=== PATIENT | female | born 1965 | race Caucasian/White ===

== ENCOUNTER → 2024-08-08 10:57 | Outpatient (CLI) | payer OTHER, SELFPAY ==
--- NOTE | 2024-08-08 11:12 | DI.RAD.S_ITS ---
PROCEDURE: XR LUMBAR SPINE MIN 4V INDICATIONS: xray TECHNIQUE: 3 lateral views of the lumbar spine acquired, including flexion and extension views.>> COMPARISON: None. FINDINGS: Lumbar spine curvature and alignment: Grade 1 L4-5 spondylolisthesis due to degenerate facet disease noted. The remaining lumbar spine is anatomically aligned Bones: There are no osseous abnormalities. Disc spaces: Moderate L4-5 and mild L5-S1 degenerative disc disease noted. There is moderate L4-5 and L5-S1 degenerative facet disease Soft tissues: Right sciatic nerve stimulator is grossly normal IMPRESSION: Grade 1 L4-5 spondylolisthesis and degeneration Dictated by: Chris Kraus M.D. on 08/09/2024 at 12:30 Approved by: Chris Kraus M.D. on 08/09/2024 at 12:31
== END ==
LOC: RAD 11:08
PROVIDERS: Referring Provider Nurse Practitioner Family; Visit Provider Nurse Practitioner Family
DX: M51.369 Other intervertebral disc degeneration, lumbar region without mention of lumbar back pain or lower extremity pain (principal); M47.816 Spondylosis without myelopathy or radiculopathy, lumbar region; M43.16 Spondylolisthesis, lumbar region; M54.50 Low back pain, unspecified; G89.29 Other chronic pain; Z96.82 Presence of neurostimulator
CPT/HCPCS: 72100

== ENCOUNTER → 2025-01-25 12:29 | Outpatient (CLI) | payer OTHER, SELFPAY ==
--- NOTE | 2025-01-25 12:30 | DI.CT.S_ITS ---
PROCEDURE: CT ANGIO CHEST INDICATIONS: status post aortic repair; chest pain; TECHNIQUE: After the administration of intravenous contrast, 2.5 mm thick sections acquired from the lung apices to the posterior lung bases. Maximum intensity projection (MIP) oblique sagittal reformats were then acquired parallel to the aortic arch. For radiation dose reduction, the following was used: automated exposure control. COMPARISON: None. FINDINGS: Image quality: Diagnostic Lungs and pleura: No airspace consolidation or pleural effusion. Tiny granuloma at the right costophrenic angle. Mediastinum, heart, and esophagus: Ascending aortic repair sequelae. The mid ascending thoracic aorta measures 3.8 cm. No evidence of dissection. Small irregularities at sites of the prior surgical anchors. No evidence of intramural hematoma. Small density along the proximal aortic wall, likely postsurgical. No priors however are available to assess stability. Unremarkable CT appearance of the esophagus. Small hiatal hernia with adjacent postsurgical changes. No enlarged lymph nodes by size criteria Chest wall and thyroid: Unremarkable Upper abdomen: No gross abnormality on these partially visualized images of the upper abdomen. Bones: No aggressive appearing osseous abnormality. Sternotomy wires are present. IMPRESSION: Postsurgical changes of the ascending aorta, without aneurysm or dissection. Ascending aortic wall thin density and small irregularities, likely postsurgical. No priors are available to assess stability. Other findings above. Dictated by: Fabricio Mehta M.D. on 01/27/2025 at 9:30 Approved by: Fabricio Mehta M.D. on 01/27/2025 at 9:35
--- NOTE | 2025-01-25 12:31 | DI.NM.S_ITS ---
PROCEDURE: NM EXERCISE TREADMILL NON NUC COMPARISON: None. INDICATIONS: status post aortic repair; chest pain; FINDINGS: The patient exercised for 5 minutes and 14 seconds reaching 92% of maximum predicted heart rate. Borderline hypertensive response to exercise (resting BP 122/80mg, max BP 202/102mmHg). Mildly to moderately reduced exercise (7.0METs, MALENA +26%). Chest tightness during exercise that slowly improved during recovery and ultimately resolved by the end of recovery. Frequent PVCs during the recovery. No diagnostic ST changes during exercise or recovery. IMPRESSION: Low risk, probably normal treadmill ECG only stress test with mildly to moderately reduced exercise capacity (7METs, MALENA +26%). 1) Non-diagnostic chest tightness during exercise that slowly improved during recovery and ultimately resolved by the end of recovery. Correlate clinically. 2) Frequent PVCs during the recovery. 3) No diagnostic ST changes during exercise or recovery. 4) Borderline hypertensive response to exercise (resting BP 122/80mg, max BP 202/102mmHg). 5) Mildly to moderately reduced exercise (7.0METs, MALENA +26%). Dictated by: Bernardino Gillespie MD on 01/26/2025 at 10:53 Approved by: Bernardino Gillespie MD on 01/26/2025 at 10:57
--- NOTE | 2025-01-25 12:31 | DI.ECHO.S_ITS ---
[facility]+ [facility] : : [address] : : [place] : : [id number] : : Phone: [phone] Echocardiogram Report + + :Name: LENA DIETZ Study Date: 01/25/2025 Height: 66 in : :[facility] [employer] [facility] ReadingLocation: Weight: 235 lb : : Gender: Female BSA: 2.1 m2 : :: 1965 Age: 59 yrs BP: 146/82 mmHg: :Reason For Study: Aortic repair : :Ordering Physician: EMANI AN Performed By: Haresh Cortez : :Referring: EMANI AN : + + Interpretation Summary - Left ventricular contractility is normal. Estimate ejection fraction regarding 55% with no segmental wall motion abnormalities. Mild concentric LVH. Normal diastolic function. - The right ventricular contractility is normal. - All cardiac chambers are of normal size. - No significant valvular abnormalities. - No obvious intracardiac shunts. - No obvious intracardiac masses nor thrombi. - No hemodynamically significant pericardial effusion. - Low right-sided filling pressures. Conclusion: Normal biventricular function with no significant valvular abnormalities. Procedure: A two-dimensional transthoracic echocardiogram with color flow and Doppler was performed. The study quality was technically adequate. There is no prior echocardiogram noted for this patient. The patient was in normal sinus rhythm during the exam. Left Ventricle: The left ventricle is normal in size. Left ventricular wall thickness is mildly increased. Left ventricular systolic function is normal. The ejection fraction is estimated to be 55-60%. There are no focal wall motion abnormalities. Normal diastolic function. Right Ventricle: The right ventricle is normal in size and function. Atria: The left atrial size is normal. Right atrial size is normal. There is no Doppler evidence for an interatrial shunt. Mitral Valve: The mitral valve leaflets appear to open well. There is no mitral valve stenosis. There is trace mitral regurgitation. Aortic Valve: The aortic valve is trileaflet. The aortic valve opens well. There is no aortic valve stenosis. No aortic regurgitation is present. Tricuspid Valve: The tricuspid valve is not well visualized, but is grossly normal. There is trace tricuspid regurgitation. The right ventricular systolic pressure is estimated to be at least 23 mmHg based on an estimated right atrial pressure of 3 mm Hg. Pulmonic Valve: The pulmonic valve is not well seen, but is grossly normal. There is trace pulmonic regurgitation. Great Vessels: The aortic root is normal size. The ascending aorta is normal in size. The aortic arch could not be visualized. The pulmonary is not well visualized. The IVC is of normal diameter and collapses greater than 50% with a sniff. This suggests a low right atrial pressure of 3 mm Hg. Pericardium/ Pleura There is no pericardial effusion. MMode/2D Measurements & Calculations LVIDd: 4.7 cm LVOT diam: 2.0 cm LVIDs: 3.4 cm Ao root diam: 3.1 cm FS: 28.6 % asc Aorta Diam: 3.2 cm IVSd: 1.1 cm LVPWd: 1.1 cm LV apple. diameter/BSA (cm/m^2): 2.2 LV sys. diameter/BSA (cm/m^2): 1.6 LA A2 area: 18.4 cm2 RA long axis: 4.8 cm LA A4 area: 16.4 cm2 RA area: 10.9 cm2 LA length (vol): 5.4 cm RA vol: 20.9 ml LA vol: 47.3 ml RA : 9.7 ml/m2 LA vol index: 22.1 ml/m2 IVC diam: 1.3 cm RVD1 (basal): 2.6 cm RVD2 (mid): 2.1 cm TAPSE: 2.0 cm Doppler Measurements & Calculations Ao V2 max: 128.1 cm/sec LVOT Max Thomas: 112.8 cm/sec Ao V2 mean: 87.4 cm/sec LV V1 max P.1 mmHg Ao max P.6 mmHg LV V1 VTI: 21.3 cm Ao mean P.5 mmHg SAMEERA(I,D): 2.7 cm2 Ao V2 VTI: 24.7 cm SAMEERA(V,D): 2.7 cm2 sev ratio: 0.86 SAMEERA indexed to BSA (cm^2/m^2): 1.2 MV E max thomas: 70.7 cm/sec TR max thomas: 222.2 cm/sec MV A max thomas: 63.8 cm/sec TR max P.7 mmHg MV E/A: 1.1 PA V2 max: 107.8 cm/sec Med Peak E' Thomas: 5.4 cm/sec PA V2 mean: 74.3 cm/sec E/E' med: 13.0 PA mean P.5 mmHg Lat Peak E' Thomas: 8.5 cm/sec PA pr(Accel): 31.5 mmHg E/E' lat: 8.3 E/e' average: 10.6 MV dec time: 0.17 sec SVLVOT): 65.6 ml Reading Physician:RUSSELL
== END ==
PROVIDERS: Referring Provider Internal Medicine; Visit Provider Internal Medicine
DX: R07.9 Chest pain, unspecified (principal); I49.3 Ventricular premature depolarization; K44.9 Diaphragmatic hernia without obstruction or gangrene; Z98.890 Other specified postprocedural states; Z86.79 Personal history of other diseases of the circulatory system
CPT/HCPCS: 71275; 93017; 93306; Q9967

== ENCOUNTER 2025-02-19 14:52 | Observation (INO) | payer OTHER, SELFPAY ==
[2025-02-19] VITALS (14 sets, daily range): BP systolic 121–193; BP diastolic 57–93; PULSE 50–71; RESP 12–24; TEMP 36.1–36.6; O2SAT 93–99; BMI 38.9
--- NOTE | 2025-02-19 15:00 | EKG_ITS ---
[facility] [address] [address] Test Date: 2025-02-19 Pat Name: Erika Moran Department: [facility] Room: Gender: Female Retail Sales Advisor: MARIANA VARGHESE : 1965 Requested By: Order Number: [id number] Reading MD: Chris Hood MD Measurements Intervals [place] Rate: 72 P: -1 FL: 156 QRS: -31 QRSD: 84 T: 44 QT: 410 QTc: 448 Interpretive Statements Normal sinus rhythm Left axis deviation Cannot rule out Anterior infarct , age undetermined Electronically Signed On 02-20-2025 6:45:00 PST by Chris Hood MD
--- NOTE | 2025-02-19 15:01 | DI.RAD.S_ITS ---
PROCEDURE: XR CHEST 1V INDICATIONS: chest pain TECHNIQUE: One view of the chest was acquired. COMPARISON: None. FINDINGS: Surgical changes and devices: Median sternotomy wires. Lungs and pleura: Lungs are clear. No pleural effusions or pneumothorax. Mediastinum: Mediastinal contours appear normal. Heart size is normal. Bones and chest wall: No suspicious bony lesions. Overlying soft tissues appear unremarkable. IMPRESSION: No acute cardiopulmonary abnormality is seen. Dictated by: Sree Owens M.D. on 02/19/2025 at 15:41 Approved by: Sree Owens M.D. on 02/19/2025 at 15:42
[2025-02-19 15:23] LABS: Add Manual Diff / Slide Review NO; Hematocrit 41.1 % (36-46); Hemoglobin 13.8 g/dL (12.0-16.0); Lymphocytes Absolute Auto 2000 /uL (1100-4500); Mean Corpuscular HGB Conc 33.6 % (30-36); Mean Corpuscular Hemoglobin 28.3 PG (26-34); Mean Corpuscular Volume 84.3 fL (80-100); Platelet Count 245 X10^3/uL (150-400)
[2025-02-19 15:34] LABS: Alanine Aminotransferase 41 IU/L (<35); Albumin 4.0 g/dL (3.5-5.0); Albumin Globulin Ratio 1.3 (1.0-2.8); Alkaline Phosphatase 91 U/L (38-126); Blood Urea Nitrogen 17 mg/dL (7-17); Calcium 8.9 mg/dL (8.4-10.2); Carbon Dioxide 23 mmol/L (22-32); Chloride 112 mmol/L (98-107); Estimated Glomerular Filt Rate > 60 mL/min (>60); Globulin 3.1 g/dL (1.7-4.1); Glucose 123 mg/dL (70-99); HEMOLYSIS < 15 (0-50); Lipase 515 U/L (23-300); Magnesium 2.0 mg/dL (1.6-2.3); Potassium 3.4 mmol/L (3.4-5.1); Sodium 142 mmol/L (137-145); Total Protein 7.1 g/dL (6.3-8.2)
[2025-02-19 15:46] LABS: NT-proBNP (BNP-Adult 18+) 995 pg/mL (<125); Troponin I < 0.012 ng/mL (0.01-0.034)
--- NOTE | 2025-02-19 15:57 | ED.CHESTPAIN ---
HPI - Chest Pain <Griffin Ascencio PA-C - Last Filed: 02/19/25 17:49> General Chief Complaint: Chest Pain Stated Complaint: chest pain, today Time Seen by Provider: 02/19/25 15:01 Source: patient Mode of arrival: Ambulatory History of Present Illness HPI narrative: 59-year-old female with past medical history aortic aneurysm, status post surgery for the aortic aneurysm presents to the ED with 1 day of left-sided chest pain. Patient states that her pain started upon awakening. Patient was driving a car, not in any apparent stress when the pain started. Patient endorses mild shortness of breath with exertion. No fever, chills, nausea, vomiting, abdominal pain, dysuria, lightheadedness, dizziness, syncope. Patient has recently been evaluated for chest pain by her traveling repair accountant Dr. nA. Patient underwent a stress test in January. Patient is scheduled to see her traveling repair accountant again in March. Related Data Home Medications ?Medication ?Instructions ?Recorded ?Confirmed amitriptyline 25 mg tablet 25 mg PO ONCE PM 02/19/25 02/19/25 aripiprazole 30 mg tablet 30 mg PO DAILY 02/19/25 02/19/25 clonidine HCl 0.1 mg tablet 0.1 mg PO ONCE PM 02/19/25 02/19/25 lisinopril 10 mg tablet 10 mg PO DAILY 02/19/25 02/19/25 potassium chloride 10 mEq 10 meq PO BID 02/19/25 02/19/25 tablet,extended release progesterone micronized 200 mg 200 mg PO ONCE PM 02/19/25 02/19/25 capsule therapeutic multivitamin 1 tab PO DAILY 02/19/25 02/19/25 triamcinolone acetonide 0.1 % 1 applic topical QD-BID PRN face 02/19/25 02/19/25 topical cream rash Previous Rx's ?Medication ?Instructions ?Recorded pantoprazole 40 mg tablet,delayed 40 mg PO DAILY #30 tabs 02/22/25 release (Protonix) Allergies Allergy/AdvReac Type Severity Reaction Status Date / Time prochlorperazine (From Allergy Respiratory Verified 02/19/25 14:57 Compazine) arrest povidone-iodine (From AdvReac Hives Verified 02/19/25 14:57 Betadine) sertraline (From Zoloft) AdvReac hallucinati Verified 02/19/25 14:57 on Review of Systems <Griffin Ascencio PA-C - Last Filed: 02/19/25 17:49> Constitutional Constitutional: Denies chills, Denies fatigue, Denies fever(s), Denies frequent falls, Denies lethargy and Denies weakness Eyes Eyes: Denies change in vision, Denies eye discharge, Denies irritation and Denies loss of vision ENT Ears, Nose, Mouth, and Throat: Denies change in voice, Denies dizziness, Denies neck pain, Denies sore throat and Denies throat swelling Cardiovascular Cardiovascular: Reports chest pain, Denies irregular heart rhythm, Denies lightheadedness, Denies palpitations, Reports dyspnea, Reports dyspnea on exertion and Denies orthopnea Respiratory Respiratory: Denies cough, Reports dyspnea, Reports dyspnea on exertion and Denies wheezing Gastrointestinal Gastrointestinal: Denies abdominal pain, Denies change in bowel habits, Denies diarrhea, Denies nausea and Denies vomiting Musculoskeletal Musculoskeletal: Denies neck pain and Denies numbness Integumentary/Breasts Skin/Breast: Denies pruritus, Denies erythema, Denies rash and Denies wounds Neurologic Neurologic: Denies behavioral changes, Denies confusion, Denies dizziness, Denies frequent falls, Denies loss of vision, Denies numbness and Denies weakness Psychiatric Psychiatric: Denies anxiety, Denies behavioral changes, Denies confusion, Denies depression, Denies homicidal ideation and Denies suicidal ideation Endocrine Endocrine: Denies fatigue, Denies flushing and Denies palpitations Hematologic/Lymphatic Hematologic/Lymphatic: Denies easy bruising Allergic/Immunologic Allergic/Immunologic: Denies urticaria, Denies throat swelling and Denies wheezing Patient History <Griffin Ascencio PA-C - Last Filed: 02/19/25 17:49> Social History household members: none Smoking Status: Never smoker alcohol intake: former Smoking Status: Never smoker Exam <Griffin Ascencio PA-C - Last Filed: 02/19/25 17:49> Narrative Exam Narrative: Const General:?cooperative, healthy appearing and comfortable [facility] Head:?normal to inspection Ears:?hearing grossly normal bilaterally Nose:?external nose normal Face and sinus:?normal facial exam and sinuses nontender Mouth:?oral mucosae normal Throat:?posterior oropharynx normal Eyes General:?appearance normal, both eyes and all related structures Neck Neck:?normal visual inspection and no lymphadenopathy noted Resp Effort & Inspection:?normal respiratory effort Auscultation:?clear to auscultation bilaterally Cardio Rate:?regular rate Rhythm:?regular rhythm Neuro General:?patient alert, patient awake and patient oriented x3 Initial Vital Signs Initial Vital Signs: Vital Signs Temperature 97.0 F L 02/19/25 14:57 Pulse Rate 71 02/19/25 14:57 Respiratory Rate 18 02/19/25 14:57 Blood Pressure 193/91 H 02/19/25 14:57 Pulse Oximetry 99 02/19/25 14:57 Oxygen Delivery Method Room Air 02/19/25 14:57 <Kiya Mcfarland DO - Last Filed: 02/23/25 23:24> Initial Vital Signs Initial Vital Signs: Vital Signs Temperature 97.0 F L 02/19/25 14:57 Pulse Rate 71 02/19/25 14:57 Respiratory Rate 18 02/19/25 14:57 Blood Pressure 193/91 H 02/19/25 14:57 Pulse Oximetry 99 02/19/25 14:57 Oxygen Delivery Method Room Air 02/19/25 14:57 Course <Griffin Ascencio PA-C - Last Filed: 02/19/25 17:49> Orders Ordered: Discontinued Medications Acetaminophen (Acetaminophen 325 Mg Tablet) 650 mg PO Q6H PRN PRN Reason: Fever/Mild Pain (1-3) Last Admin: 02/20/25 00:55 Dose: 650 mg Documented By: TD Amitriptyline HCl (Amitriptyline 25 Mg Tablet) 25 mg PO BEDTIME [facility] Last Admin: 02/21/25 21:18 Dose: 25 mg Documented By: Admin: 02/20/25 21:02 Dose: 25 mg Documented By: Admin: 02/20/25 00:19 Dose: 25 mg Documented By: TD Aripiprazole (Aripiprazole 10 Mg Tablet) 30 mg PO DAILY [facility] Last Admin: 02/22/25 09:32 Dose: 30 mg Documented By: Admin: 02/21/25 09:11 Dose: 30 mg Documented By: Admin: 02/20/25 10:07 Dose: 30 mg Documented By: TASHA Aspirin (Aspirin 81 Mg Chew Tab) 324 mg PO NOW ONE Stop: 12/15/25 15:02 Last Admin: 02/19/25 16:12 Dose: 324 mg Documented By: RL Calcium Carbonate (Calcium Carbonate 500 Mg Tab) 1,000 mg PO Q4HR PRN PRN Reason: Dyspepsia Clonidine HCl (Clonidine 0.1 Mg Tablet) 0.1 mg PO BEDTIME [facility] Last Admin: 02/21/25 21:18 Dose: 0.1 mg Documented By: Admin: 02/20/25 21:02 Dose: 0.1 mg Documented By: Admin: 02/20/25 00:18 Dose: 0.1 mg Documented By: TD Al Hydrox/Mg Hydrox/Simethicone 30 ml/ Lidocaine HCl 15 ml 0 ml PO NOW ONE Stop: 02/20/25 08:59 Last Admin: 02/20/25 10:15 Dose: 45 ml Documented By: TASHA Cyanocobalamin (Cyanocobalamin 1,000 Mcg/Ml Vial) 1,000 mcg IM NOW ONE Stop: 02/22/25 10:39 Last Admin: 02/22/25 11:34 Dose: 1,000 mcg Documented By: NR Fentanyl (Fentanyl 100 Mcg/2 Ml Inj) 25 mcg IV Q2HR PRN PRN Reason: Pain, Severe (7-10) Last Admin: 02/20/25 21:07 Dose: 25 mcg Documented By: AT Furosemide (Furosemide 40 Mg/4 Ml Vial) 40 mg IV NOW ONE Stop: 02/19/25 15:57 Last Admin: 02/19/25 16:12 Dose: 40 mg Documented By: RL Heparin Sodium (Porcine) (Heparin 5,000 Unit/Ml Vial) 5,000 unit IV NOW ONE Stop: 02/20/25 16:31 Last Admin: 02/20/25 16:52 Dose: 5,000 unit Documented By: TASHA Heparin Sodium (Porcine) (Heparin 5,000 Unit/Ml Vial) 2,500 unit IV NOW ONE Stop: 02/21/25 06:46 Last Admin: 02/21/25 06:49 Dose: 2,500 unit Documented By: AT Heparin Sodium (Porcine) (Heparin 5,000 Unit/Ml Vial) 2,500 unit 25 unit/kg (2500 unit) IV NOW ONE Stop: 02/21/25 14:05 Last Admin: 02/21/25 14:26 Dose: 2,500 unit Documented By: NR Heparin Sodium (Porcine) (Heparin 5,000 Unit/Ml Vial) 2,500 unit 25 unit/kg (2500 unit) IV NOW ONE Stop: 02/22/25 12:41 Last Admin: 02/22/25 12:55 Dose: 2,500 unit Documented By: CATHLEEN Heparin Sodium/Dextrose (Heparin Drip) 25,000 unit in 500 mls @ 26.236 mls/hr IV CONT [facility]; Protocol Last Admin: 02/20/25 16:44 Dose: Not Given Documented By: TASHA Heparin Sodium/Dextrose (Heparin Drip) 25,000 unit in 500 mls @ 19.896 mls/hr IV CONT [facility]; Protocol Last Titration: 02/22/25 12:56 Dose: 11.1 units/kg/hr, 24.268 mls/hr Documented By: CATHLEEN Co-signed By: JERRY Admin: 02/22/25 03:45 Dose: 10.1 units/kg/hr, 22.082 mls/hr Documented By: CAIN Co-signed By: MODESTO Titration: 02/22/25 03:45 Dose: Infused Documented By: CAIN Co-signed By: MODESTO Admin: 02/21/25 18:42 Dose: 11.1 units/kg/hr, 24.268 mls/hr Documented By: CATHLEEN Co-signed By: JERRY Titration: 02/21/25 16:42 Dose: Infused Documented By: CATHLEEN Co-signed By: JERRY Titration: 02/21/25 14:27 Dose: 11.1 units/kg/hr, 24.268 mls/hr Documented By: CATHLEEN Co-signed By: JERRY Titration: 02/21/25 06:49 Dose: 10.1 units/kg/hr, 22.082 mls/hr Documented By: AT Co-signed By: IRWIN Admin: 02/20/25 16:53 Dose: 9.1 units/kg/hr, 19.896 mls/hr Documented By: TASHA Co-signed By: ARAM Lisinopril (Lisinopril 10 Mg Tablet) 10 mg PO DAILY [facility] Last Admin: 02/22/25 09:33 Dose: 10 mg Documented By: Admin: 02/21/25 09:11 Dose: 10 mg Documented By: Admin: 02/20/25 10:07 Dose: 10 mg Documented By: TASHA Lorazepam (Lorazepam 2 Mg/Ml Inj) 0.5 mg IV Q4HR PRN PRN Reason: Anxiety Last Admin: 02/20/25 13:12 Dose: 0.5 mg Documented By: TASHA Morphine Sulfate (Morphine 4 Mg/Ml Inj) 4 mg IV Q4HR [facility] Last Admin: 02/20/25 00:18 Dose: 4 mg Documented By: TD Morphine Sulfate (Morphine 4 Mg/Ml Inj) 4 mg IV Q4HR PRN PRN Reason: Pain, Severe (7-10) Morphine Sulfate (Morphine 2 Mg/Ml Inj) 2 mg IV Q2HR PRN PRN Reason: Chest Pain Last Admin: 02/22/25 09:32 Dose: 2 mg Documented By: Admin: 02/21/25 13:52 Dose: 2 mg Documented By: Admin: 02/21/25 09:11 Dose: 2 mg Documented By: Admin: 02/20/25 11:57 Dose: 2 mg Documented By: Admin: 02/20/25 08:34 Dose: 2 mg Documented By: TASHA Naloxone HCl (Naloxone 0.4 Mg/Ml Vial) 0.2 mg IV Q2MIN PRN PRN Reason: Opiate Reversal Nitroglycerin (Nitroglycerin 0.4 Mg Sl Tab) 0.4 mg SL [id number] PRN PRN Reason: Chest Pain Last Admin: 02/20/25 08:20 Dose: 0.4 mg Documented By: Admin: 02/20/25 00:16 Dose: 0.4 mg Documented By: TD Nitroglycerin (Nitroglycerin Oint 1 Inch/Gm Oint...G.) 0.5 inch TOP 0900,1500 [facility] Last Admin: 02/22/25 09:33 Dose: 0.5 inch Documented By: Admin: 02/21/25 15:18 Dose: 0.5 inch Documented By: Admin: 02/21/25 09:40 Dose: Not Given Documented By: Admin: 02/20/25 16:53 Dose: 0.5 inch Documented By: TASHA Potassium Chloride (Potassium Chloride 10 Meq Tab) 10 meq PO BID [facility] Last Admin: 02/22/25 09:32 Dose: 10 meq Documented By: Admin: 02/21/25 21:18 Dose: 10 meq Documented By: Admin: 02/21/25 09:11 Dose: 10 meq Documented By: Admin: 02/20/25 21:02 Dose: 10 meq Documented By: Admin: 02/20/25 10:07 Dose: 10 meq Documented By: TASHA Potassium Chloride (Potassium Chloride 20 Meq Tab) 40 meq PO NOW ONE Stop: 02/20/25 09:59 Last Admin: 02/20/25 10:06 Dose: 40 meq Documented By: TASHA Vital Signs Vital signs: Vital Signs - 8 hr 02/19/25 14:57 02/19/25 16:17 02/19/25 16:45 Temperature 97.0 F L Pulse Rate 71 58 L 54 L Respiratory Rate 18 18 18 Blood Pressure 193/91 H 147/71 H 135/64 Pulse Oximetry 99 98 99 Oxygen Delivery Method Room Air Room Air Room Air <Kiya Mcfarland DO - Last Filed: 02/23/25 23:24> Orders Ordered: Discontinued Medications Acetaminophen (Acetaminophen 325 Mg Tablet) 650 mg PO Q6H PRN PRN Reason: Fever/Mild Pain (1-3) Last Admin: 02/20/25 00:55 Dose: 650 mg Documented By: TD Amitriptyline HCl (Amitriptyline 25 Mg Tablet) 25 mg PO BEDTIME [facility] Last Admin: 02/21/25 21:18 Dose: 25 mg Documented By: Admin: 02/20/25 21:02 Dose: 25 mg Documented By: Admin: 02/20/25 00:19 Dose: 25 mg Documented By: TD Aripiprazole (Aripiprazole 10 Mg Tablet) 30 mg PO DAILY [facility] Last Admin: 02/22/25 09:32 Dose: 30 mg Documented By: Admin: 02/21/25 09:11 Dose: 30 mg Documented By: Admin: 02/20/25 10:07 Dose: 30 mg Documented By: TASHA Aspirin (Aspirin 81 Mg Chew Tab) 324 mg PO NOW ONE Stop: 02/19/25 15:02 Last Admin: 02/19/25 16:12 Dose: 324 mg Documented By: RL Calcium Carbonate (Calcium Carbonate 500 Mg Tab) 1,000 mg PO Q4HR PRN PRN Reason: Dyspepsia Clonidine HCl (Clonidine 0.1 Mg Tablet) 0.1 mg PO BEDTIME [facility] Last Admin: 02/21/25 21:18 Dose: 0.1 mg Documented By: Admin: 02/20/25 21:02 Dose: 0.1 mg Documented By: Admin: 02/20/25 00:18 Dose: 0.1 mg Documented By: TD Al Hydrox/Mg Hydrox/Simethicone 30 ml/ Lidocaine HCl 15 ml 0 ml PO NOW ONE Stop: 02/20/25 08:59 Last Admin: 02/20/25 10:15 Dose: 45 ml Documented By: TSAHA Cyanocobalamin (Cyanocobalamin 1,000 Mcg/Ml Vial) 1,000 mcg IM NOW ONE Stop: 02/22/25 10:39 Last Admin: 02/22/25 11:34 Dose: 1,000 mcg Documented By: NR Fentanyl (Fentanyl 100 Mcg/2 Ml Inj) 25 mcg IV Q2HR PRN PRN Reason: Pain, Severe (7-10) Last Admin: 02/20/25 21:07 Dose: 25 mcg Documented By: AT Furosemide (Furosemide 40 Mg/4 Ml Vial) 40 mg IV NOW ONE Stop: 02/19/25 15:57 Last Admin: 02/19/25 16:12 Dose: 40 mg Documented By: SYED Heparin Sodium (Porcine) (Heparin 5,000 Unit/Ml Vial) 5,000 unit IV NOW ONE Stop: 02/20/25 16:31 Last Admin: 02/20/25 16:52 Dose: 5,000 unit Documented By: TASHA Heparin Sodium (Porcine) (Heparin 5,000 Unit/Ml Vial) 2,500 unit IV NOW ONE Stop: 02/21/25 06:46 Last Admin: 02/21/25 06:49 Dose: 2,500 unit Documented By: AT Heparin Sodium (Porcine) (Heparin 5,000 Unit/Ml Vial) 2,500 unit 25 unit/kg (2500 unit) IV NOW ONE Stop: 02/21/25 14:05 Last Admin: 02/21/25 14:26 Dose: 2,500 unit Documented By: NR Heparin Sodium (Porcine) (Heparin 5,000 Unit/Ml Vial) 2,500 unit 25 unit/kg (2500 unit) IV NOW ONE Stop: 02/22/25 12:41 Last Admin: 02/22/25 12:55 Dose: 2,500 unit Documented By: NR Heparin Sodium/Dextrose (Heparin Drip) 25,000 unit in 500 mls @ 26.236 mls/hr IV CONT [facility]; Protocol Last Admin: 02/20/25 16:44 Dose: Not Given Documented By: TASHA Heparin Sodium/Dextrose (Heparin Drip) 25,000 unit in 500 mls @ 19.896 mls/hr IV CONT [facility]; Protocol Last Titration: 02/22/25 12:56 Dose: 11.1 units/kg/hr, 24.268 mls/hr Documented By: CATHLEEN Co-signed By: JERRY Admin: 02/22/25 03:45 Dose: 10.1 units/kg/hr, 22.082 mls/hr Documented By: CAIN Co-signed By: MODESTO Titration: 02/22/25 03:45 Dose: Infused Documented By: CAIN Co-signed By: MODESTO Admin: 02/21/25 18:42 Dose: 11.1 units/kg/hr, 24.268 mls/hr Documented By: CATHLEEN Co-signed By: JERRY Titration: 02/21/25 16:42 Dose: Infused Documented By: CATHLEEN Co-signed By: JERRY Titration: 02/21/25 14:27 Dose: 11.1 units/kg/hr, 24.268 mls/hr Documented By: CATHLEEN Co-signed By: JERRY Titration: 02/21/25 06:49 Dose: 10.1 units/kg/hr, 22.082 mls/hr Documented By: AT Co-signed By: IRWIN Admin: 02/20/25 16:53 Dose: 9.1 units/kg/hr, 19.896 mls/hr Documented By: TASHA Co-signed By: ARAM Lisinopril (Lisinopril 10 Mg Tablet) 10 mg PO DAILY [facility] Last Admin: 02/22/25 09:33 Dose: 10 mg Documented By: Admin: 02/21/25 09:11 Dose: 10 mg Documented By: Admin: 02/20/25 10:07 Dose: 10 mg Documented By: TASHA Lorazepam (Lorazepam 2 Mg/Ml Inj) 0.5 mg IV Q4HR PRN PRN Reason: Anxiety Last Admin: 02/20/25 13:12 Dose: 0.5 mg Documented By: TASHA Morphine Sulfate (Morphine 4 Mg/Ml Inj) 4 mg IV Q4HR [facility] Last Admin: 02/20/25 00:18 Dose: 4 mg Documented By: TD Morphine Sulfate (Morphine 4 Mg/Ml Inj) 4 mg IV Q4HR PRN PRN Reason: Pain, Severe (7-10) Morphine Sulfate (Morphine 2 Mg/Ml Inj) 2 mg IV Q2HR PRN PRN Reason: Chest Pain Last Admin: 02/22/25 09:32 Dose: 2 mg Documented By: Admin: 02/21/25 13:52 Dose: 2 mg Documented By: Admin: 02/21/25 09:11 Dose: 2 mg Documented By: Admin: 02/20/25 11:57 Dose: 2 mg Documented By: Admin: 02/20/25 08:34 Dose: 2 mg Documented By: TASHA Naloxone HCl (Naloxone 0.4 Mg/Ml Vial) 0.2 mg IV Q2MIN PRN PRN Reason: Opiate Reversal Nitroglycerin (Nitroglycerin 0.4 Mg Sl Tab) 0.4 mg SL [id number] PRN PRN Reason: Chest Pain Last Admin: 02/20/25 08:20 Dose: 0.4 mg Documented By: Admin: 02/20/25 00:16 Dose: 0.4 mg Documented By: TD Nitroglycerin (Nitroglycerin Oint 1 Inch/Gm Oint...G.) 0.5 inch TOP 0900,1500 [facility] Last Admin: 02/22/25 09:33 Dose: 0.5 inch Documented By: Admin: 02/21/25 15:18 Dose: 0.5 inch Documented By: Admin: 02/21/25 09:40 Dose: Not Given Documented By: Admin: 02/20/25 16:53 Dose: 0.5 inch Documented By: TASHA Potassium Chloride (Potassium Chloride 10 Meq Tab) 10 meq PO BID [facility] Last Admin: 02/22/25 09:32 Dose: 10 meq Documented By: Admin: 02/21/25 21:18 Dose: 10 meq Documented By: Admin: 02/21/25 09:11 Dose: 10 meq Documented By: Admin: 02/20/25 21:02 Dose: 10 meq Documented By: Admin: 02/20/25 10:07 Dose: 10 meq Documented By: TASHA Potassium Chloride (Potassium Chloride 20 Meq Tab) 40 meq PO NOW ONE Stop: 02/20/25 09:59 Last Admin: 02/20/25 10:06 Dose: 40 meq Documented By: TASHA Vital Signs Vital signs: Vital Signs - 8 hr 02/19/25 14:57 02/19/25 16:17 12/15/25 16:45 Temperature 97.0 F L Pulse Rate 71 58 L 54 L Respiratory Rate 18 18 18 Blood Pressure 193/91 H 147/71 H 135/64 Pulse Oximetry 99 98 99 Oxygen Delivery Method Room Air Room Air Room Air MDM - Chest Pain <Griffin Ascencio PA-C - Last Filed: 02/19/25 17:49> Lab Data 02/22/25 02:52 02/21/25 05:24 Labs: Lab Results 02/19/25 Range/Units 15:13 WBC 7.6 (4.5-11.0) X10^3/uL RBC 4.87 (4.0-5.2) X10^6/uL Hgb 13.8 (12.0-16.0) g/dL Hct 41.1 (36-46) % MCV 84.3 (80-100) fL MCH 28.3 (26-34) PG MCHC 33.6 (30-36) % RDW 14.7 (11.6-14.8) % Plt Count 245 (150-400) X10^3/uL Neut % (Auto) 63.9 (50-75) % Lymph % (Auto) 25.8 (25-40) % [place] % (Auto) 6.0 (3-14) % Eos % (Auto) 3.8 (2-4) % Baso % (Auto) 0.5 (0-2) % Neut # (Auto) 4900 (6936-6479) /uL Lymph # (Auto) 2000 (0596-7419) /uL [place] # (Auto) 500 (0-900) /uL Eos # (Auto) 300 (0-450) /uL Baso # (Auto) 0 (0-100) /uL Sodium 142 (137-145) mmol/L Potassium 3.4 (3.4-5.1) mmol/L Chloride 112 H (98-107) mmol/L Carbon Dioxide 23 (22-32) mmol/L BUN 17 (7-17) mg/dL Creatinine 0.75 (0.52-1.04) mg/dL Estimated GFR > 60 (>60) mL/min BUN/Creatinine Ratio 22.7 H (6-22) Glucose 123 H (70-99) mg/dL Calcium 8.9 (8.4-10.2) mg/dL Magnesium 2.0 (1.6-2.3) mg/dL Total Bilirubin 0.3 (0.2-1.3) mg/dL AST 36 (14-36) IU/L ALT 41 H (<35) IU/L Alkaline Phosphatase 91 (38-126) U/L Troponin I < 0.012 (0.01-0.034) ng/mL NT-Pro-B Natriuret Pep 995 H (<125) pg/mL Total Protein 7.1 (6.3-8.2) g/dL Albumin 4.0 (3.5-5.0) g/dL Globulin 3.1 (1.7-4.1) g/dL Albumin/Globulin Ratio 1.3 (1.0-2.8) Lipase 515 H (23-300) U/L MDM Narrative Medical decision making narrative: 59-year-old female with past medical history aortic aneurysm, status post surgery for the aortic aneurysm presents to the ED with 1 day of left-sided chest pain. ACS workup was obtained. EKG is normal sinus rhythm, with left axis deviation. No acute ST-T changes. Chest x-ray with no acute cardiopulmonary abnormality. Troponin within normal limits. BNP is elevated to 995. All other labs within normal limits. Patient given a dose of Lasix. Consulted hospitalist Dr. Garcia, who graciously accepts patient for admission to observation and further diuresis. Discussed findings and disposition with patient. Patient verbalized understanding and is agreeable to the plan. Medical records reviewed: Yes <Kiya Mcfarland, - Last Filed: 02/23/25 23:24> Lab Data Labs: Lab Results 02/19/25 Range/Units 15:13 WBC 7.6 (4.5-11.0) X10^3/uL RBC 4.87 (4.0-5.2) X10^6/uL Hgb 13.8 (12.0-16.0) g/dL Hct 41.1 (36-46) % MCV 84.3 (80-100) fL MCH 28.3 (26-34) PG MCHC 33.6 (30-36) % RDW 14.7 (11.6-14.8) % Plt Count 245 (150-400) X10^3/uL Neut % (Auto) 63.9 (50-75) % Lymph % (Auto) 25.8 (25-40) % [place] % (Auto) 6.0 (3-14) % Eos % (Auto) 3.8 (2-4) % Baso % (Auto) 0.5 (0-2) % Neut # (Auto) 4900 (5232-5999) /uL Lymph # (Auto) 2000 (3440-1460) /uL [place] # (Auto) 500 (0-900) /uL Eos # (Auto) 300 (0-450) /uL Baso # (Auto) 0 (0-100) /uL Sodium 142 (137-145) mmol/L Potassium 3.4 (3.4-5.1) mmol/L Chloride 112 H (98-107) mmol/L Carbon Dioxide 23 (22-32) mmol/L BUN 17 (7-17) mg/dL Creatinine 0.75 (0.52-1.04) mg/dL Estimated GFR > 60 (>60) mL/min BUN/Creatinine Ratio 22.7 H (6-22) Glucose 123 H (70-99) mg/dL Calcium 8.9 (8.4-10.2) mg/dL Magnesium 2.0 (1.6-2.3) mg/dL Total Bilirubin 0.3 (0.2-1.3) mg/dL AST 36 (14-36) IU/L ALT 41 H (<35) IU/L Alkaline Phosphatase 91 (38-126) U/L Troponin I < 0.012 (0.01-0.034) ng/mL NT-Pro-B Natriuret Pep 995 H (<125) pg/mL Total Protein 7.1 (6.3-8.2) g/dL Albumin 4.0 (3.5-5.0) g/dL Globulin 3.1 (1.7-4.1) g/dL Albumin/Globulin Ratio 1.3 (1.0-2.8) Lipase 515 H (23-300) U/L Discharge Plan Departure Patient Disposition: Admitted as Observation Clinical Impression: Chest pain Qualifiers: Chest pain type: unspecified Qualified Code(s): R07.9 - Chest pain, unspecified Admit Date/Time: 02/19/25 17:23 Admit Provider: Santiago Garcia ED Sign-out <Kiya Mcfarland DO - Last Filed: 02/23/25 23:24> Cosign ED Attending Cosignature Attestation: I was immediately available in the department for consultation.
[2025-02-19] MEDS: FUROSEMIDE 40 MG/4 ML VIAL IV (16:12)
[2025-02-19] MEDS: ASPIRIN 81 MG CHEW TAB 324 MG PO (16:12)
--- NOTE | 2025-02-19 17:35 | P.HP_ITS ---
History of Present Illness History of Present Illness Date Patient Seen: 02/19/25 Chief complaint: chest pain, today Narrative: HPI: Patient was a 59-year-old female with a history of a repaired ascending aortic aneurysm. She presents now with 1 day history of left-sided chest pressure. The pain is not exertional in fact occurred once when she was sleeping. She denies any reflux symptoms. She was followed by Cardiology, underwent a stress test in January. States that she would to stop the test prematurely because of chest pain. Next steps from Cardiology were somewhat unclear. She denies any pain in the ED, troponins and ECG were non diagnostic. If there was an elevation in BNP. She denies dyspnea but does note that there is some swelling of arms and legs. She was on Lasix chronically. Echo data is not available. She denies recent cough, fevers, or chills. No orthopnea or pleuritic component to pain. No associated nausea, vomiting, or diaphoresis. ROS: All else reviewed and otherwise unremarkable except as noted in the history and physical. O: NAD, alert and oriented, fluent speech, calm. Normocephalic skull, EOMI, anicteric sclera, symmetric pupils. Oropharynx unremarkable, no droop. Neck supple, midline trachea, no adenopathy. Lungs clear, normal rate and effort. Heart regular, no murmur gallop or rub. Abdomen is soft, non distended and non tender. Extremities are free of edema. Skin is free of rash or lesions. Joints are not swollen or deformed. Judgment appears to be normal. ECG: Intervals [place] Rate: 72 P: -1 IA: 156 QRS: -31 QRSD: 84 T: 44 QT: 410 QTc: 448 Interpretive Statements Normal sinus rhythm Left axis deviation Cannot rule out Anterior infarct , age undetermined IMAGING: Chest x-ray: No acute cardiopulmonary abnormality is seen. Echo dated January 25: Left ventricular contractility is normal. Estimate ejection fraction regarding 55% with no segmental wall motion abnormalities. Mild concentric LVH. Normal diastolic function. - The right ventricular contractility is normal. - All cardiac chambers are of normal size. - No significant valvular abnormalities. - No obvious intracardiac shunts. - No obvious intracardiac masses nor thrombi. - No hemodynamically significant pericardial effusion. - Low right-sided filling pressures. Conclusion: Normal biventricular function with no significant valvular abnormalities. A/P: 1. CP, active. 2. H/O stress test that induced chest pain, in January. She also had a reduced exercise tolerance. PLAN: -serial troponin, 2D echo, discuss with her business performance manager in the morning regarding next steps. Anticipate 1 MN in the hospital, supports observation status. [facility] Social History Smoking Status: Never smoker Meds Home Medications and Allergies Allergies Allergy/AdvReac Type Severity Reaction Status Date / Time prochlorperazine (From Allergy Respiratory Verified 02/19/25 14:57 Compazine) arrest povidone-iodine (From AdvReac Hives Verified 02/19/25 14:57 Betadine) sertraline (From Zoloft) AdvReac hallucinati Verified 02/19/25 14:57 on Exam Vital Signs (past 8 hours): - 02/19/25 14:57 02/19/25 16:17 02/19/25 16:45 Temperature 97.0 F L Pulse Rate 71 58 L 54 L Respiratory Rate 18 18 18 Blood Pressure 193/91 H 147/71 H 135/64 Pulse Oximetry 99 98 99 Oxygen Delivery Method Room Air Room Air Room Air Oxygen Delivery Method Room Air Objective Labs 02/19/25 15:13 02/19/25 15:13 Labs: Laboratory Results - last 24 hr 02/19/25 15:13 WBC 7.6 RBC 4.87 Hgb 13.8 Hct 41.1 MCV 84.3 MCH 28.3 MCHC 33.6 RDW 14.7 Plt Count 245 Neut % (Auto) 63.9 Lymph % (Auto) 25.8 [place] % (Auto) 6.0 Eos % (Auto) 3.8 Baso % (Auto) 0.5 Neut # (Auto) 4900 Lymph # (Auto) 2000 [place] # (Auto) 500 Eos # (Auto) 300 Baso # (Auto) 0 Sodium 142 Potassium 3.4 Chloride 112 H Carbon Dioxide 23 BUN 17 Creatinine 0.75 Estimated GFR > 60 BUN/Creatinine Ratio 22.7 H Glucose 123 H Calcium 8.9 Magnesium 2.0 Total Bilirubin 0.3 AST 36 ALT 41 H Alkaline Phosphatase 91 Troponin I < 0.012 NT-Pro-B Natriuret Pep 995 H Total Protein 7.1 Albumin 4.0 Globulin 3.1 Albumin/Globulin Ratio 1.3 Lipase 515 H Assessment & Plan Time-Based Coding :: 35 min spent with patient and on the chart (including review of chart, obtaining history, exam, reviewing outside data, placing orders, documenting exam and treatment plan, and counseling patient) on 02/19. Quality MIPS - Admit I confirm the patient?s Advance Care Plan is present, Code status is documented, Surrogate decision maker is in patient?s record [If Yes, STOP here]: Yes The patient?s Advance Care plan is not present because I confirmed today that the patient does not wish or was not able to name a surrogate decision maker or provide an Advance Care Plan.: Yes MIPS - Meds 'Current medications' to include all prescriptions, hhsy-wcy-lugbftp products, herbals, cannabis/cannabidiol products, and vitamin/mineral/dietary (nutritional) supplements. I have utilized all available resources to obtain, update, or review the patient?s current medications. [If Yes, STOP here]: Yes
[2025-02-20] VITALS (11 sets, daily range): BP systolic 104–192; BP diastolic 53–93; PULSE 45–68; RESP 12–29; TEMP 36.6–37.1; O2SAT 94–99
[2025-02-20] MEDS: NITROGLYCERIN 0.4 MG SL TAB SL ×2 (00:16→08:20)
[2025-02-20] MEDS: MORPHINE 4 MG/ML INJ IV (00:18)
[2025-02-20] MEDS: AMITRIPTYLINE 25 MG TABLET PO ×2 (00:19→21:02)
[2025-02-20] MEDS: ACETAMINOPHEN 325 MG TABLET 650 MG PO (00:55)
[2025-02-20 05:08] LABS: Add Manual Diff / Slide Review NO; Hematocrit 38.2 % (36-46); Hemoglobin 12.9 g/dL (12.0-16.0); Lymphocytes Absolute Auto 2500 /uL (1100-4500); Mean Corpuscular HGB Conc 33.7 % (30-36); Mean Corpuscular Hemoglobin 28.2 PG (26-34); Mean Corpuscular Volume 83.8 fL (80-100); Platelet Count 220 X10^3/uL (150-400)
[2025-02-20 05:16] LABS: Blood Urea Nitrogen 17 mg/dL (7-17); Calcium 9.0 mg/dL (8.4-10.2); Carbon Dioxide 27 mmol/L (22-32); Chloride 106 mmol/L (98-107); Estimated Glomerular Filt Rate > 60 mL/min (>60); Glucose 100 mg/dL (70-99); HEMOLYSIS < 15 (0-50); Potassium 3.3 mmol/L (3.4-5.1); Sodium 139 mmol/L (137-145)
[2025-02-20 05:27] LABS: Troponin I 0.015 ng/mL (0.01-0.034)
--- NOTE | 2025-02-20 08:19 | EKG_ITS ---
[address] [address] Test Date: 2025-02-20 Pat Name: Erika Moran Department: Room: 229 Gender: Female Shipping Assistant: SHANTEL : 1965 Requested By: Order Number: [id number] Reading MD: Chris Hood MD Measurements Intervals [place] Rate: 54 P: 6 [place]: 176 QRS: -31 QRSD: 88 T: 65 QT: 466 QTc: 441 Interpretive Statements Sinus bradycardia Left axis deviation Cannot rule out Anterior infarct , age undetermined NO SIGNIFICANT CHANGE FROM PRIOR TRACING Electronically Signed On 02-20-2025 11:03:31 PST by Chris Hood MD
[2025-02-20] MEDS: MORPHINE 2 MG/ML INJ IV ×2 (08:34→11:57)
--- NOTE | 2025-02-20 08:59 | DI.NM.S_ITS ---
PROCEDURE: NM MANAS PERF SPECT R&S PHARM Rest and pharmacological stress myocardial perfusion SPECT with gated imaging and ejection fraction RADIOPHARMACEUTICAL: 26.4 mCi Tc-99m tetrafosmin IV at rest and 27.5 mCi Tc-99m tetrafosmin IV at peak effect of pharmacological stress. Okg-xmj-qscolvlz was performed. INDICATIONS: Chest pain PQRS ATTESTATIONS: Measure 322 - Is this imaging test primarily performed on a low-risk surgery patient for preoperative evaluation within 30 days preceding their low-risk non-cardiac surgery? Low-risk surgery is defined as cardiac or myocardial infarction less than 1%, including (but not limited to) endoscopic procedures, superficial procedures, cataract surgery, and excisional breast surgery: Answer: No Measure 323 - Is this imaging test performed primarily for the monitoring of an asymptomatic patient who had percutaneous coronary intervention on the visit date or within 2 years of the visit date? Answer: No Measure 324 - Is this imaging test performed primarily for the initial detection and risk assessment on an asymptomatic, low coronary heart disease patient? Low CHD risk definition = clinicians should consider the maximum number of available patient factors used to estimate risk based on [place] (ATP III criteria), typically age, gender, diabetes, smoking status, and use of blood pressure medication, and integrate age appropriate estimates for missing elements, such as LDL or standard blood pressure. Answer: No TECHNIQUE: Radiopharmaceutical was injected at peak stress test, and also at rest. SPECT images were obtained. SPECT myocardial perfusion images were displayed in short axis, horizontal long axis, and vertical long axis views. Gated images were reviewed using [employer]QUANT software. COMPARISON: None. CARDIAC STRESS: A pharmacologic stress test was performed under the supervision of an attending staff, using an infusion of 0.4 mg of Lexiscan. Hemodynamic data: There is normal blood pressure and heart rate response to pharmacologic stress. Symptoms: The patient denied anginal chest pain. Aminophylline: None EKG: No diagnostic changes of ischemia; no ectopy. FINDINGS: Raw data: There is good myocardial uptake of radiotracer. No significant motion artifacts. Faha-mt-eihln ratio is 0.44 (normal is less than 0.38 for tetrafosmin tracer). Left ventricle function: Gated images demonstrate normal left ventricular wall thickening. No segmental wall motion abnormalities. No transient ischemic dilation; TID is 0.88 (normal less than 1.3). Left ventricle resting end diastolic volume is 96 mL. Left ventricle stress ejection fraction is 81%; normal range is above 45%. Myocardial perfusion: Rest images had no perfusion defects. Stress images had mild hypoperfusion in the inferior segment. Prone images had no perfusion defects. IMPRESSION: 1. Negative Lexiscan myocardial perfusion scan for ischemia and infarction. Dictated by: Hany An M.D. on 02/22/2025 at 13:00 Approved by: Hany An M.D. on 02/22/2025 at 13:02
--- NOTE | 2025-02-20 09:03 | P.PN_ITS ---
Subjective Subjective Interval history: Summary: Patient is a 59-year-old female with a history of a repaired ascending aortic aneurysm. She presents now with 1 day history of left-sided chest pressure. The pain is not exertional in fact occurred once when she was sleeping. She denies any reflux symptoms. She was followed by Cardiology, underwent a stress test in January. States that she would to stop the test prematurely because of chest pain. Next steps from Cardiology were somewhat unclear. She denies any pain in the ED, troponins and ECG were non diagnostic. If there was an elevation in BNP. She denies dyspnea but does note that there is some swelling of arms and legs. She was on Lasix chronically. Echo data is not available. S: Having some left-sided chest pressure this morning. No associated symptoms. O: T 98.5?, BP 133/65, pulse 45, respiration 20, SpO2 94% room air. NAD, alert and oriented. Fluent speech. Lungs are clear, normal rate and effort. Heart is regular, no murmur gallop or rub. Abdomen is soft, non distended. Extremities are free of edema. Trop negative. ECG: NSR, non-acute. IMAGING: Chest x-ray: No acute cardiopulmonary abnormality is seen. Echo dated January 25: Left ventricular contractility is normal. Estimate ejection fraction regarding 55% with no segmental wall motion abnormalities. Mild concentric LVH. Normal diastolic function. - The right ventricular contractility is normal. - All cardiac chambers are of normal size. - No significant valvular abnormalities. - No obvious intracardiac shunts. - No obvious intracardiac masses nor thrombi. - No hemodynamically significant pericardial effusion. - Low right-sided filling pressures. Conclusion: Normal biventricular function with no significant valvular abnormalities. A/P: 1. CP, active. 2. H/O stress test that induced chest pain, in January. She also had a reduced exercise tolerance. PLAN: -GI cocktail, echo, morphine as needed pain. Discussed with her primary director of restaurants, Dr. An at [facility]. He recommends a Lexiscan exercise stress test as her previous stress test was without imaging. Anticipate 2 MN in the hospital, supports observation status. (2-day ETT) Exam Vital Signs (past 8 hours): - 02/20/25 03:47 02/20/25 08:20 Temperature 98.5 F Pulse Rate 50 L 45 L Respiratory Rate 20 Blood Pressure 104/53 L 133/65 Pulse Oximetry 94 Oxygen Flow Rate 0 Oxygen Delivery Method Room Air Oxygen Flow Rate 0 Objective Labs 02/20/25 04:18 02/20/25 04:18 Labs: Laboratory Results - last 24 hr 02/19/25 02/20/25 15:13 04:18 WBC 7.6 6.8 RBC 4.87 4.56 Hgb 13.8 12.9 Hct 41.1 38.2 MCV 84.3 83.8 MCH 28.3 28.2 MCHC 33.6 33.7 RDW 14.7 14.3 Plt Count 245 220 Neut % (Auto) 63.9 50.5 Lymph % (Auto) 25.8 36.8 [place] % (Auto) 6.0 6.9 Eos % (Auto) 3.8 5.4 H Baso % (Auto) 0.5 0.4 Neut # (Auto) 4900 3400 Lymph # (Auto) 2000 2500 [place] # (Auto) 500 500 Eos # (Auto) 300 400 Baso # (Auto) 0 0 Sodium 142 139 Potassium 3.4 3.3 L Chloride 112 H 106 Carbon Dioxide 23 27 BUN 17 17 Creatinine 0.75 0.72 Estimated GFR > 60 > 60 BUN/Creatinine Ratio 22.7 H 23.6 H Glucose 123 H 100 H Calcium 8.9 9.0 Magnesium 2.0 Total Bilirubin 0.3 AST 36 ALT 41 H Alkaline Phosphatase 91 Troponin I < 0.012 0.015 NT-Pro-B Natriuret Pep 995 H Total Protein 7.1 Albumin 4.0 Globulin 3.1 Albumin/Globulin Ratio 1.3 Lipase 515 H [facility] Social History household members: none Smoking Status: Never smoker alcohol intake: former Assessment & Plan Time-Based Coding :: [TOTAL MINUTES] spent with patient and on the chart (including review of chart, obtaining history, exam, reviewing outside data, placing orders, documenting exam and treatment plan, and counseling patient) on [DATE].
[2025-02-20] MEDS: POTASSIUM CHLORIDE 20 MEQ TAB 40 MEQ PO (10:06)
[2025-02-20] MEDS: POTASSIUM CHLORIDE 10 MEQ TAB PO ×2 (10:07→21:02)
[2025-02-20] MEDS: MAG HYDROX/ALUMINUM/SIMETH SUS 30 ML, LIDOCAINE VISCOUS 2% 15 ML PO (10:15)
--- NOTE | 2025-02-20 10:40 | DI.ECHO.S_ITS ---
[facility]+ [facility] : : [address] : : [place] : : [address] : : Phone: [phone] Echocardiogram Report + + :Name: LENA DIETZ Study Date: 02/20/2025 Height: 66 in : :[facility] ReadingLocation: Weight: 241 lb : : Gender: Female BSA: 2.2 m2 : :: 1965 Age: 59 yrs BP: 125/58 mmHg: :Reason For Study: ASSESS EF : :Ordering Physician: JANA, : :OMARI Parisi Performed By: Josué Castro : :Referring: OMARI BATES : + + Interpretation Summary - The left ventricular contractility is normal. Estimated ejection fraction is greater than 60% with no segmental wall motion abnormalities. Mild asymmetrical septal hypertrophy without obstruction. Unable to comment on diastolic function. - In limited views, the right ventricular contractility is normal. - Limited Doppler interrogation of the valves demonstrated no significant insufficiency nor stenosis. - No obvious intracardiac masses nor thrombi. - No hemodynamically significant pericardial effusion. - Low right-sided filling pressures. Conclusion: Normal left ventricular systolic function. When compared with previous echocardiogram, no significant changes have occurred. Procedure: A two-dimensional transthoracic echocardiogram was performed in limited views only to assess LVEF. A contrast injection of Definity was performed to improve assessment of LV function. The study quality was technically adequate. Comparison is made with the echocardiogram of 01/25/2025. The patient was in normal sinus rhythm during the exam. Left Ventricle: The left ventricle is normal in size. There is mild asymmetric left ventricular hypertrophy. The ejection fraction is estimated to be 60-65%. Mitral Valve: There is trace mitral regurgitation. Tricuspid Valve: There is trace tricuspid regurgitation. The right ventricular systolic pressure is estimated to be at least 24 mmHg based on an estimated right atrial pressure of 3 mm Hg. Great Vessels: The IVC is of normal diameter and collapses greater than 50% with a sniff. This suggests a low right atrial pressure of 3 mm Hg. MMode/2D Measurements & Calculations LVIDd: 4.9 cm LVIDs: 3.0 cm FS: 38.4 % IVSd: 1.4 cm LVPWd: 1.1 cm LV apple. diameter/BSA (cm/m^2): 2.3 LV sys. diameter/BSA (cm/m^2): 1.4 Doppler Measurements & Calculations TR max trinity: 227.6 cm/sec TR max P.7 mmHg Reading Physician:RUSSELL
--- NOTE | 2025-02-20 14:14 | CM.DANOTE ---
Initial DCP Assessment Visit Note Reviewed EMR and team rounds for pt's medical needs and updates. Met with pt at bedside to introduce self and role, pt was found to be alert/oriented, and able to discuss her needs/preferences/concerns. Pt resides alone independently in her own home here in [place]. She is in the middle of a difficult divorce, and her estranged is now out of state. He shares that she has several friends that are her support system, and lives just a block away from the hospital. She plans to walk home once she's medically cleared for home d/c, likely tomorrow, 02/21. Payor: [facility] PCP: not identified Pt is a 59 year-old F with a medical hx of repaired ascending aortic aneurysm. She presented to the ED yesterday evening with c/o L-sided chest pressure for the last 24-hours, as well as mild SOB. She is followed by her Pressure Supervisor at [facility]. Chest x-ray in the ED did not show any abnormalities, however pt does have lower extremity swelling. She was started on IV lasix, and futjjr8hy as OBS for further diuresis, cardiac monitoring, and stress test. She did express the need for a new DPOA-HC ([facility]). REID completed the forms and signed, along with another RN from Care Management as witnesses. Copy sent to medical records for uploading into pt's chart. DCP will continue to monitor for any further evolving home d/c needs, however none are anticipated at this time. Discharge Planning/Care Management CM Discharge Assessment Start: 02/19/25 22:30 Freq: Status: Active Protocol: Document 02/20/25 14:12 DPL (Rec: 02/20/25 14:14 DPL [id number]) Discharge Planning Assessment Assigned Discharge REID Carlos Household Appliance Repairer Insurance [facility] Advance Directives? No History Provided By Patient,Medical Record Has Patient been No admitted in last 30 days? Prior Living Apartment/Condo Arrangements Household Members none Type of Drives own vehicle transporation used prior to admit Independent with ADL Yes 's Is patient alert and Yes oriented? Comment N/A Caregiver for No Another Comment N/A Comment F/U OP with Cardiac provider, already scheduled for March. Barriers to No Discharge Discharge Plan Home Referrals Initiated None needed Whiteboard Updated Yes in Patient Room with name and ext. # of Nutritional Services Cook Review Status In Process Please Provide Date 02/20/25 Initial DC Assessment Was Performed
[2025-02-20 15:32] LABS: Add Manual Diff / Slide Review NO; Hematocrit 38.4 % (36-46); Hemoglobin 12.9 g/dL (12.0-16.0); Lymphocytes Absolute Auto 2300 /uL (1100-4500); Mean Corpuscular HGB Conc 33.5 % (30-36); Mean Corpuscular Hemoglobin 28.1 PG (26-34); Mean Corpuscular Volume 83.9 fL (80-100); Platelet Count 227 X10^3/uL (150-400)
[2025-02-20 15:39] LABS: INR 1.0 (0.9-1.3); Prothrombin Time 10.9 SECONDS (9.4-12.5)
[2025-02-20 15:41] LABS: PTT Partial Thromboplastin Tim 31 SECONDS (25.1-36.5)
[2025-02-20] MEDS: HEPARIN 5,000 UNIT/ML VIAL 5000 UNIT IV (16:52)
[2025-02-20] MEDS: HEPARIN DRIP 25,000 UNIT/500 ML IV.SOLN 19.896 UNIT IV (16:53)
[2025-02-20] MEDS: NITROGLYCERIN OINT 1 INCH/GM OINT...G. 0.5 INCH TOP (16:53)
--- NOTE | 2025-02-20 18:07 | PC.NURSE ---
Day Shift Note Patient reported 5/10 epigastric pain this morning, constant pressure. Nitro SL, morphine x2, and ativan administered for chest pain with no reported change, Dr. Garcia notified. Pt continues to report 5/10 pain, nitro paste ordered and applied to left chest and heparin gtt started pt MD order. Pt independent to bathroom, denies shortness of breath. Call light within reach, using appropriately to make needs known.
[2025-02-20] MEDS: fentaNYL 100 MCG/2 ML INJ 25 MCG IV (21:07)
[2025-02-20 23:05] LABS: PTT Partial Thromboplastin Tim 55 SECONDS (25.1-36.5)
[2025-02-21 03:35] VITALS: BP 100/52; PULSE 61; RESP 12; TEMP 36.6; O2SAT 95
--- NOTE | 2025-02-21 05:57 | EKG_ITS ---
[address] [address] Test Date: 2025-02-21 Pat Name: Erika Moran Department: [facility] Room: 229 Gender: Female Registered Nurse: OLIVER : 1965 Requested By: Order Number: [id number] Reading MD: Kal Fermin Measurements Intervals [place] Rate: 48 P: -11 [place]: 172 QRS: -30 QRSD: 86 T: 68 QT: 460 QTc: 410 Interpretive Statements Sinus bradycardia with sinus arrhythmia Left axis deviation Electronically Signed On 02-21-2025 8:08:16 PST by Kal Fermin
[2025-02-21 06:03] LABS: Add Manual Diff / Slide Review NO; Hematocrit 38.6 % (36-46); Hemoglobin 13.0 g/dL (12.0-16.0); Lymphocytes Absolute Auto 2200 /uL (1100-4500); Mean Corpuscular HGB Conc 33.5 % (30-36); Mean Corpuscular Hemoglobin 28.3 PG (26-34); Mean Corpuscular Volume 84.3 fL (80-100); Platelet Count 215 X10^3/uL (150-400)
[2025-02-21 06:10] LABS: PTT Partial Thromboplastin Tim 41 SECONDS (25.1-36.5)
[2025-02-21 06:12] LABS: Blood Urea Nitrogen 17 mg/dL (7-17); Calcium 8.8 mg/dL (8.4-10.2); Carbon Dioxide 27 mmol/L (22-32); Chloride 107 mmol/L (98-107); Estimated Glomerular Filt Rate > 60 mL/min (>60); Glucose 90 mg/dL (70-99); HEMOLYSIS < 15 (0-50); Potassium 3.9 mmol/L (3.4-5.1); Sodium 139 mmol/L (137-145)
[2025-02-21 06:24] LABS: Troponin I < 0.012 ng/mL (0.01-0.034)
[2025-02-21] MEDS: HEPARIN 5,000 UNIT/ML VIAL 2500 UNIT IV ×2 (06:49→14:26)
--- NOTE | 2025-02-21 08:06 | PM.PN.1 ---
Subjective Subjective Date Patient Seen: 02/21/25 Interval history: Patient is a 59-year-old female with a history of a repaired ascending aortic aneurysm. She presents now with 1 day history of left-sided chest pressure. The pain is not exertional in fact occurred once when she was sleeping. She denies any reflux symptoms. She was followed by Cardiology, underwent a stress test in January. States that she would to stop the test prematurely because of chest pain. Next steps from Cardiology were somewhat unclear. She denies any pain in the ED, troponins and ECG were non diagnostic. If there was an elevation in BNP. She denies dyspnea but does note that there is some swelling of arms and legs. She was on Lasix chronically. Echo data is not available. 02/20: Having some left-sided chest pressure this morning. No associated symptoms. 02/21: Continues to have ambulance attendant left-sided chest pressure each day. EKG today is reassuring. Troponins are normal x3. She says that nitroglycerin and a GI cocktail were both tried and did not help. The BNP was high at [address] scan today is normal. She has already received a dose of Lasix. She complains of poor sleep. She says that the pain occurs both when she is moving around at home and when she is resting here. It does not feel to her like her previous episodes of acid reflux. Echocardiogram results are reviewed. CT angiogram is ordered and reviewed. The CBC and BNP are normal. NAD, alert and oriented. Fluent speech. Lungs are clear, normal rate and effort. Heart is regular, no murmur gallop or rub. No chest wall tenderness. Abdomen is soft, non distended. Not tender. Extremities are free of edema. Trop negative x3. ECG: NSR, non-acute. IMAGING: Chest x-ray: No acute cardiopulmonary abnormality is seen. CT angiogram of the chest shows no pulmonary abnormality and no irregularity to her previous thoracic aortic repair. Echo dated January 25: Left ventricular contractility is normal. Estimate ejection fraction regarding 55% with no segmental wall motion abnormalities. Mild concentric LVH. Normal diastolic function. - The right ventricular contractility is normal. - All cardiac chambers are of normal size. - No significant valvular abnormalities. - No obvious intracardiac shunts. - No obvious intracardiac masses nor thrombi. - No hemodynamically significant pericardial effusion. - Low right-sided filling pressures. Conclusion: Normal biventricular function with no significant valvular abnormalities. A/P: 1. CP, active. 2. H/O stress test that induced chest pain, in January. She also had a reduced exercise tolerance. PLAN: -GI cocktail so far on helpful, echo reassuring, morphine as needed pain. Discussed previously with her primary fishing tackle repairer, Dr. An at [facility]. He recommended a Lexiscan exercise stress test as her previous stress test was without imaging. This turns out to be a 2 day test so she will be staying until tomorrow. Exam Vital Signs (past 8 hours): - 02/21/25 03:35 Temperature 97.8 F Pulse Rate 61 Respiratory Rate 12 Blood Pressure 100/52 L Pulse Oximetry 95 Oxygen Delivery Method Room Air Oxygen Flow Rate 0 Objective Labs 02/21/25 05:24 02/21/25 05:24 Labs: Laboratory Results - last 24 hr 02/20/25 02/20/25 02/21/25 15:20 22:46 05:24 WBC 6.6 5.3 RBC 4.58 4.58 Hgb 12.9 13.0 Hct 38.4 38.6 MCV 83.9 84.3 MCH 28.1 28.3 MCHC 33.5 33.5 RDW 14.0 14.6 Plt Count 227 215 Neut % (Auto) 52.7 44.9 L Lymph % (Auto) 34.0 41.6 H [place] % (Auto) 8.7 6.7 Eos % (Auto) 4.1 H 6.1 H Baso % (Auto) 0.5 0.7 Neut # (Auto) 3500 2400 Lymph # (Auto) 2300 2200 [place] # (Auto) 600 400 Eos # (Auto) 300 300 Baso # (Auto) 0 0 PT 10.9 INR 1.0 APTT 31 55 H D 41 H D Sodium 139 Potassium 3.9 Chloride 107 Carbon Dioxide 27 BUN 17 Creatinine 0.71 Estimated GFR > 60 BUN/Creatinine Ratio 23.9 H Glucose 90 Calcium 8.8 Troponin I < 0.012 PFSH Social History household members: none Smoking Status: Never smoker alcohol intake: former Assessment & Plan Time-Based Coding :: [TOTAL MINUTES] spent with patient and on the chart (including review of chart, obtaining history, exam, reviewing outside data, placing orders, documenting exam and treatment plan, and counseling patient) on [DATE].
[2025-02-21 09:00] VITALS: BP 130/59; PULSE 66; RESP 22; TEMP 36.7; O2SAT 97
[2025-02-21 09:11] VITALS: BP 130/59; PULSE 80
[2025-02-21] MEDS: MORPHINE 2 MG/ML INJ IV ×2 (09:11→13:52)
[2025-02-21] MEDS: POTASSIUM CHLORIDE 10 MEQ TAB PO ×2 (09:11→21:18)
--- NOTE | 2025-02-21 10:49 | DI.CT.S_ITS ---
PROCEDURE: CT CHEST W CON INDICATIONS: Chest pain with history of Thoracic Aneurysm repair TECHNIQUE: After the administration of intravenous contrast, 5 mm thick sections acquired from the pulmonary apices to the posterior costophrenic angles. 1 mm axial lung, 5 mm thick coronal and sagittal reformats and 7 mm axial MIP were acquired. For radiation dose reduction, the following was used: automated exposure control, adjustment of mA and/or kV according to patient size. COMPARISON: None. FINDINGS: Image quality: Diagnostic. Lower Neck: No enlarged lymph nodes. Thyroid: No thyroid nodules which require sonographic follow up, per consensus guidelines. Axillae: No enlarged lymph nodes. Chest Wall: Unremarkable. Bones: Unremarkable. Lungs and Pleura: No pneumothorax or pleural effusions. No consolidation or suspicious nodules. Heart: Heart size is normal. No pericardial effusion. Thoracic Vessels: The aorta and pulmonary arteries demonstrate normal size. Midline sternotomy wires consistent with given history of previous thoracic aortic aneurysm repair. Ascending thoracic aorta measures 3.9 cm. Transverse arch and descending thoracic aorta are of normal caliber. No dissection. Mediastinum and Kelly: No enlarged lymph nodes. Esophagus: No wall thickening. No hiatal hernia. Upper Abdomen: Visualized upper abdomen solid organs and bowel loops appear normal. Remote cholecystectomy. Previous GE junction region surgery. IMPRESSION: No acute pulmonary process. Unremarkable appearance of repaired thoracic aorta. Dictated by: Jalen Rodgers M.D. on 02/21/2025 at 11:14 Approved by: Jalen Rodgers M.D. on 02/21/2025 at 11:18
--- NOTE | 2025-02-21 11:21 | CM.DPNOTE ---
DCP Continued: Reviewed EMR and team rounds for pt?s medical status. Per hosptilist, pt to discharge today pending stress results. Pt down for stress test today in Nuc Med at 1130. No discharge needs identified, pt to walk home from hospital if cleared (lives 1 block away). Plan: Anticipating discharge home on 02/21, will walk self home if cleared. CM Team will continue to follow for coordination of discharge plans. KAITLYN SalgadoSW
[2025-02-21 13:00] VITALS: BP 127/59; PULSE 63; RESP 17; O2SAT 97
[2025-02-21 13:31] LABS: PTT Partial Thromboplastin Tim 36 SECONDS (25.1-36.5)
[2025-02-21] MEDS: NITROGLYCERIN OINT 1 INCH/GM OINT...G. 0.5 INCH TOP (15:18)
[2025-02-21 17:00] VITALS: BP 138/60; PULSE 57; RESP 18; TEMP 36.8; O2SAT 97
[2025-02-21] MEDS: HEPARIN DRIP 25,000 UNIT/500 ML IV.SOLN 24.268 UNIT IV (18:42)
[2025-02-21 21:00] VITALS: BP 150/73; PULSE 105; RESP 22; TEMP 36.6; O2SAT 98
[2025-02-21 21:08] LABS: PTT Partial Thromboplastin Tim 66 SECONDS (25.1-36.5)
[2025-02-21] MEDS: AMITRIPTYLINE 25 MG TABLET PO (21:18)
[2025-02-22 01:00] VITALS: BP 127/60; PULSE 54; RESP 19; TEMP 36.6; O2SAT 98
[2025-02-22 03:02] LABS: Hematocrit 37.9 % (36-46); Hemoglobin 12.8 g/dL (12.0-16.0); Platelet Count 205 X10^3/uL (150-400)
[2025-02-22 03:13] LABS: PTT Partial Thromboplastin Tim 78 SECONDS (25.1-36.5)
[2025-02-22] MEDS: HEPARIN DRIP 25,000 UNIT/500 ML IV.SOLN 22.082 UNIT IV (03:45)
--- NOTE | 2025-02-22 07:51 | PM.DS.1 ---
History of Present Illness History of Present Illness Date Patient Seen: 02/22/25 Chief complaint: chest pain, today Narrative: Patient was a 59-year-old female with a history of a repaired ascending aortic aneurysm. She presents now with 1 day history of left-sided chest pressure. The pain is not exertional in fact occurred once when she was sleeping. She denies any reflux symptoms. She was followed by Cardiology, underwent a stress test in January. States that she would to stop the test prematurely because of chest pain. Next steps from Cardiology were somewhat unclear. She denies any pain in the ED, troponins and ECG were non diagnostic. If there was an elevation in BNP. She denies dyspnea but does note that there is some swelling of arms and legs. She was on Lasix chronically. Echo data is not available. She denies recent cough, fevers, or chills. No orthopnea or pleuritic component to pain. No associated nausea, vomiting, or diaphoresis. Discharge Providers Provider Date of admission: 02/19/25 17:23 Discharge Date: 02/22/25 Discharge provider: Wander Fermin MD Summary Hospital Course Hospital Course: To summarize: Cause of chest pain has not been defined. Her Lexiscan is low risk for CAD. She will trial Protonix 2 weeks. She says she is not under any significant stress so would not accept stress/anxiety as the cause for chest pain. Follow up with her PCP and with her azure principal solution specialist, Dr. An. Time Spent with Patient Time spent: Less than 30 minutes Exam Vital Signs (past 8 hours): - 02/22/25 01:00 Temperature 98 F Pulse Rate 54 L Respiratory Rate 19 Blood Pressure 127/60 Pulse Oximetry 98 Oxygen Delivery Method Room Air Oxygen Flow Rate 0 Narrative Exam Narrative: Heart is regular rate and rhythm without murmur. Lungs are clear to auscultation bilaterally. Extremities have no ankle edema. Objective Labs 02/22/25 02:52 02/21/25 05:24 Labs: Laboratory Results - last 24 hr 02/21/25 02/21/25 02/22/25 13:07 20:50 02:52 Hgb 12.8 Hct 37.9 Plt Count 205 APTT 36 66 H D 78 H* D PFSH Social History household members: none Smoking Status: Never smoker alcohol intake: former Discharge Plan Discharge Plan Patient Disposition: Home Provider Discharge Comment: Follow up with Dr. An and with Sussy Chavez in 1-2 weeks. Discharge orders & Medications Prescriptions: New pantoprazole [Protonix] 40 mg tablet,delayed release (DR/EC) 40 mg PO DAILY Qty: 30 0RF Continued triamcinolone acetonide 0.1 % cream 1 applic topical QD-BID PRN (Reason: face rash) aripiprazole 30 mg tablet 30 mg PO DAILY clonidine HCl 0.1 mg tablet 0.1 mg PO ONCE PM potassium chloride 10 mEq tablet extended release 10 meq PO BID amitriptyline 25 mg tablet 25 mg PO ONCE PM progesterone micronized 200 mg capsule 200 mg PO ONCE PM therapeutic multivitamin Tablet 1 tab PO DAILY lisinopril 10 mg tablet 10 mg PO DAILY Diet/Activity/Treatments Diet: Regular Visit Report/Discharge Packet Stand Alone Forms: [employer], Patient Portal/API, Stroke Signs & Symptoms, Influenza Vaccine Info, Notice of Privacy Practices, Inpatient vs Outpatient, Pneumococcal Vaccine Info, Pt. Rights & Responsibilities Discharge Data Attending Provider: Santiago Garcia Admit Date/Time: 02/19/25 17:23
[2025-02-22 08:00] VITALS: BP 129/57; PULSE 57; RESP 14; TEMP 35.9; O2SAT 95
[2025-02-22] MEDS: MORPHINE 2 MG/ML INJ IV (09:32)
[2025-02-22] MEDS: POTASSIUM CHLORIDE 10 MEQ TAB PO (09:32)
[2025-02-22 09:33] VITALS: BP 129/57; PULSE 75; PULSE 76
[2025-02-22] MEDS: NITROGLYCERIN OINT 1 INCH/GM OINT...G. 0.5 INCH TOP (09:33)
[2025-02-22] MEDS: CYANOCOBALAMIN 1,000 MCG/ML VIAL 1000 MCG IM (11:34)
[2025-02-22 12:24] LABS: PTT Partial Thromboplastin Tim 42 SECONDS (25.1-36.5)
[2025-02-22] MEDS: HEPARIN 5,000 UNIT/ML VIAL 2500 UNIT IV (12:55)
--- NOTE | 2025-02-22 14:48 | PC.NURSE ---
1440: discharge instructions given and understood by pt. PIV removed. Tele removed. Pt escorted to end of facility property.
--- NOTE | 2025-02-22 15:17 | CM.DPC ---
DCP Discharge Home Per MD, pt medically stable to discharge home today and outpt f/u and no identified barriers to discharge. Per pourer crane ladle, aware pt plans to walk herself home which is about a block away and pt able to ambulate independently and staff helped pt get downstairs and to the end of the hospital property for d/c to home. REID Darden
== END 2025-02-22 14:40 | disposition home or self-care (01) ==
LOC: ED 17:23 → AC 17:23 → ICU 22:40
PROVIDERS: Internal Medicine; Admitting Provider Hospitalist; Emergency Provider Student in an Organized Health Care Education/Training Program; Referring Provider Student in an Organized Health Care Education/Training Program; Visit Provider Hospitalist
DX: R07.9 Chest pain, unspecified (principal); R06.02 Shortness of breath; R60.9 Edema, unspecified
CPT/HCPCS: 36415; 71045; 71260; 78452; 80048; 80053; 83690; 83735; 83880; 84484; 85014; 85018; 85025; 85049; 85610; 85730; 93005; 93010; 93017; 93307; 96365; 96366; 96372; 96375; 96376; 99284; G0378; A9502; J1644; J1938; J2060; J2270; J2272; J2785; J3010; J3420; Q9957; Q9967